=== PATIENT | female | born 1955 | race Caucasian/White ===

== ENCOUNTER 2019-05-23 11:25 | Day surgery (SDC) | payer OTHER ==
[~2019-05-23] VITALS: Ht 157.5 cm; Wt 72.7 kg
[~2019-05-23 11:25] MED LIST: ASPI81EC; ATEN25; ATEN25 PO; Aspirin EC81 MG; Aspirin EC81 MG PO; CYCL10 PO; Cvs Heartburn1 EACH; Cvs Heartburn1 EACH PO; ESOM20 PO; ESTR.05PBW TOP; GABA300 PO; GLUCOSAMINE-CH1 EA16 PO; Hair, Skin & N1 EACH PO; Imitrex50 MG PO; LEVSOD88 PO; LUTEIN10 MG PO; MELO7.5 PO; MEMA10 PO; MOMENI; Mobic15 MG PO; NEBI5 PO; NEXIUM 24HR20 M2 PO; ONE DAILY COMP1 EACH PO; PREG150 PO; PROACE100; Synthroid100 MCG PO; TAMS.4ER; TRAM50 PO; VALA500 PO; VITAMIN D5000 UNIT PO; Valtrex1000 MG PO; ZOLP10 PO; ZOLP5 PO
[2019-05-23] MEDS ORDERED: ATEN50 (12:18)
== END 2019-05-23 14:45 | disposition home or self-care (01) ==
LOC: ORSCSDS 11:25
PROVIDERS: Orthopaedic Surgery
PROC: 01N50ZZ Release Median Nerve, Open Approach (ICD-10-PCS; principal; 2019-05-23 15:30)
DX: G56.01 Carpal tunnel syndrome, right upper limb (principal); I10 Essential (primary) hypertension; E78.5 Hyperlipidemia, unspecified; E03.9 Hypothyroidism, unspecified; M79.7 Fibromyalgia; E78.00 Pure hypercholesterolemia, unspecified; Z79.899 Other long term (current) drug therapy
CPT/HCPCS: J0690; J2250; J2405; J3010; J3370; J7120

== ENCOUNTER 2020-09-17 07:36 | Day surgery (SDC) | payer OTHER ==
[~2020-09-17] VITALS: Ht 154.9 cm; Wt 68.7 kg
[~2020-09-17 07:36] MED LIST changes: +ATEN50; +NYSTOP15 GM
--- NOTE | 2020-09-17 08:20 | NUR ---
09/17/20 0820 Amber Burrows FIRST IV IN RIGHT HAND BLEW SECOND IV IN RIGHT HAND WORKED
== END 2020-09-17 10:05 | disposition home or self-care (01) ==
LOC: ORSCSDS 07:36
PROVIDERS: Internal Medicine Gastroenterology
PROC: 0DBM8ZX Excision of Descending Colon, Via Natural or Artificial Opening Endoscopic, Diagnostic (ICD-10-PCS; principal; 2020-09-17 09:00)
DX: Z12.11 Encounter for screening for malignant neoplasm of colon (principal); K63.5 Polyp of colon; K57.30 Diverticulosis of large intestine without perforation or abscess without bleeding; K64.4 Residual hemorrhoidal skin tags; Z86.010 Personal history of colon polyps
CPT/HCPCS: 88302; J0461; J2405; J2704; J3010; J7120

== ENCOUNTER 2022-11-27 09:36 | Day surgery (SDC) | payer OTHER ==
[~2022-11-27] VITALS: Ht 154.9 cm; Wt 68.4 kg
--- NOTE | 2022-11-27 10:38 | NUR ---
11/27/22 1038 LALO GUTIÉRREZ PT PLEASANT AND COOPERATIVE, CALL LIGHT WITHIN REACH.
[2022-11-27 11:38] VITALS: BP 119/67
== END 2022-11-27 11:26 | disposition home or self-care (01) ==
LOC: ORSCSDS 09:36
PROVIDERS: Anesthesiology
PROC: 3E0R3BZ Introduction of Anesthetic Agent into Spinal Canal, Percutaneous Approach (ICD-10-PCS; principal; 2022-11-27 11:00)
PROC: 3E0R33Z Introduction of Anti-inflammatory into Spinal Canal, Percutaneous Approach (ICD-10-PCS; principal; 2022-11-27 11:00)
DX: M51.16 Intervertebral disc disorders with radiculopathy, lumbar region (principal); I10 Essential (primary) hypertension; E03.9 Hypothyroidism, unspecified; K21.9 Gastro-esophageal reflux disease without esophagitis; Z79.899 Other long term (current) drug therapy
CPT/HCPCS: J1040

== ENCOUNTER 2024-02-03 05:49 | Day surgery (SDC) | payer OTHER ==
[~2024-02-03] VITALS: Ht 154.9 cm; Wt 71.6 kg
[~2024-02-03 05:49] MED LIST changes: -ATEN50; +ATEN50 PO; +MIRALAX1714 PO; +NEXIUM PO; +VALTREX PO
[2024-02-03] MEDS ORDERED: Magnesium250 MG PO (06:30)
[2024-02-03] MEDS ORDERED: CeFAZolin Sodium 2,000 MG in NS 100 ML IV SCH (06:35)
[2024-02-03] MEDS ORDERED: Lactated Ringer's 1,000 ML IV SCH (06:35)
[2024-02-03 06:42] VITALS: BP 154/67
[2024-02-03] MEDS ORDERED: propofoL 0 ML IV ONE (06:56)
[2024-02-03] MEDS ORDERED: NS 1,000 ML BAG IR SCH (07:05)
[2024-02-03] MEDS ORDERED: Bupivacaine 0.5% HCl 5 MG/ML 30MLVIAL ONE (07:06)
[2024-02-03] MEDS ORDERED: Lidocaine HCl 1% 30 ML SDV ONE (07:06)
[2024-02-03] MEDS ORDERED: NS 500 ML IV SCH (07:10)
[2024-02-03 08:09] VITALS: BP 128/64
--- NOTE | 2024-02-03 08:31 | NUR ---
Discharge instructions reviewed with patient. Patient verbalizes understanding. Copy given to patient to take home. Dressings c/d/i. Patient States Post-Procedure ride home has been arranged.
== END 2024-02-03 23:16 | disposition home or self-care (01) ==
LOC: ORSCMMR 05:49
PROVIDERS: Surgery
PROC: 0WBF0ZZ Excision of Abdominal Wall, Open Approach (ICD-10-PCS; principal; 2024-02-03 07:30)
DX: D17.1 Benign lipomatous neoplasm of skin and subcutaneous tissue of trunk (principal); I10 Essential (primary) hypertension; E78.5 Hyperlipidemia, unspecified; K21.9 Gastro-esophageal reflux disease without esophagitis; E66.9 Obesity, unspecified; Z68.29 Body mass index [BMI] 29.0-29.9, adult; Z79.899 Other long term (current) drug therapy
CPT/HCPCS: 88304; J0690; J2704; J7040; J7120